=== PATIENT | male | born 1990 | race African-American/Black ===

== ENCOUNTER 2017-05-11 17:33 | Emergency (ER) | payer OTHER ==
[~2017-05-11] VITALS: Ht 182.9 cm; Wt 97.5 kg
[~2017-05-11 17:33] MED LIST: ALLEGRA ALLERG180 MG PO; ALLEGRA-D 12 H1 EACH PO; AZITHROMYCIN 2250 MG PO; FLONASE 0.05%50 MCG NASAL; IBUPROFEN 600600 M1 PO; KEFLEX500 MG PO; MOXIFLOXACIN H400 MG PO; NASONEX17 GM NASAL; ZPAK PO
[2017-05-11 19:18] LABS: HEMATOCRIT 37.7 % (42.0-52.0); HEMOGLOBIN 13.6 gm/dL (14.0-18.0); MCH 32.3 pg (26.0-34.0); MCHC 36.1 g/dL (28.0-37.0); MCV 89.5 fL (80.0-100.0); PLATELET COUNT 337 thou/uL (150-400); RBC 4.22 mil/uL (4.50-6.00); RDW 12.3 % (10.5-14.5); WBC 5.1 thou/uL (4.0-11.0)
[2017-05-11 19:20] LABS: MANUAL DIFF YES
[2017-05-11 19:30] LABS: ANION GAP 6 mmol/L (7-16); BUN 13 mg/dL (7-18); CALCIUM 8.7 mg/dL (8.5-10.1); CHLORIDE 107 mmol/L (98-107); CO2 29 mmol/L (21-32); CREATININE 1.4 mg/dL (0.7-1.3); GLUCOSE 114 mg/dL (74-106); POTASSIUM 3.6 mmol/L (3.5-5.1); SODIUM 142 mmol/L (136-145)
[2017-05-11 19:35] LABS: CHOLESTEROL 127 mg/dL (<200); HDL CHOLESTEROL 71 mg/dL (>40); LDL CHOLESTEROL 32 mg/dL (<100); TC:HDL 1.8 Ratio (Not establshd); TRIGLYCERIDE 121 mg/dL (<150); VLDL 24 mg/dL (<40)
[2017-05-11 19:54] LABS: ABSOLUTE NEUTROPHILS 2.8 thou/uL (1.4-8.2); TOTAL CELL COUNT 100
[2017-05-11 21:07] VITALS: BP 139/60
== END 2017-05-11 21:11 | disposition short-term general hospital (02) ==
LOC: ER 17:33
PROVIDERS: Physician Assistant
DX: S09.90XA Unspecified injury of head, initial encounter (principal); F07.81 Postconcussional syndrome; F17.210 Nicotine dependence, cigarettes, uncomplicated; F10.99 Alcohol use, unspecified with unspecified alcohol-induced disorder; F12.10 Cannabis abuse, uncomplicated; Z88.1 Allergy status to other antibiotic agents; V89.2XXA Person injured in unspecified motor-vehicle accident, traffic, initial encounter; Y93.89 Activity, other specified; Y92.89 Other specified places as the place of occurrence of the external cause; Y99.8 Other external cause status

== ENCOUNTER 2017-07-21 00:32 | Emergency (ER) | payer OTHER ==
[~2017-07-21] VITALS: Ht 182.9 cm; Wt 103.4 kg
[2017-07-21 00:38] VITALS: BP 141/87
[2017-07-21] MEDS ORDERED: CIPRODEX OTIC7.5 ML OTIC (00:56)
== END 2017-07-21 01:12 | disposition home or self-care (01) ==
LOC: ER 00:32
DX: H60.91 Unspecified otitis externa, right ear (principal); F17.210 Nicotine dependence, cigarettes, uncomplicated; F10.99 Alcohol use, unspecified with unspecified alcohol-induced disorder; Z88.1 Allergy status to other antibiotic agents

== ENCOUNTER 2018-05-03 22:55 | Emergency (ER) | payer OTHER ==
[~2018-05-03] VITALS: Ht 182.9 cm; Wt 97.5 kg
[~2018-05-03 22:55] MED LIST changes: +CIPRODEX OTIC7.5 ML OTIC; +CORTISPORIN OTI10 ML OTIC; +DOXYCYCLINE 10100 MG PO
[2018-05-04] MEDS ORDERED: CLINDAMYCIN HC300 MG PO (00:54)
[2018-05-04] MEDS ORDERED: PREDNISONE 20 M20 MG PO (00:54)
[2018-05-04 01:20] VITALS: BP 134/78
== END 2018-05-04 01:20 | disposition home or self-care (01) ==
LOC: ER 22:55
DX: L02.211 Cutaneous abscess of abdominal wall (principal); H66.91 Otitis media, unspecified, right ear; J32.9 Chronic sinusitis, unspecified; F17.210 Nicotine dependence, cigarettes, uncomplicated; Z88.1 Allergy status to other antibiotic agents

== ENCOUNTER 2019-03-04 10:54 | Emergency (ER) | payer OTHER ==
[~2019-03-04] VITALS: Ht 182.9 cm; Wt 99.8 kg
[~2019-03-04 10:54] MED LIST changes: +CLINDAMYCIN HC300 MG PO; +PREDNISONE 20 M20 MG PO
[2019-03-04] MEDS ORDERED: MEDROLDOSEPACK PO (13:28)
[2019-03-04] MEDS ORDERED: DOXYCYCLINE 10100 MG PO (13:28)
[2019-03-04 15:19] VITALS: BP 158/100
== END 2019-03-04 14:11 | disposition home or self-care (01) ==
LOC: ER 10:54
DX: R50.9 Fever, unspecified (principal); R05 Cough; R09.81 Nasal congestion; F17.210 Nicotine dependence, cigarettes, uncomplicated; Z88.1 Allergy status to other antibiotic agents

== ENCOUNTER 2019-03-22 16:51 | Emergency (ER) | payer OTHER ==
[~2019-03-22] VITALS: Ht 182.9 cm; Wt 99.8 kg
[~2019-03-22 16:51] MED LIST changes: +MEDROLDOSEPACK PO
[2019-03-22] MEDS ORDERED: BACTRIM DS TAB1 EACH PO (17:32)
[2019-03-22] MEDS ORDERED: FLONASE 0.05%50 MCG NASAL (17:32)
[2019-03-22] MEDS ORDERED: PREDNISONE 10 M10 MG PO (17:32)
[2019-03-22 17:40] VITALS: BP 147/86
== END 2019-03-22 17:40 | disposition home or self-care (01) ==
LOC: ER 16:51
DX: J32.9 Chronic sinusitis, unspecified (principal); L02.415 Cutaneous abscess of right lower limb; F17.210 Nicotine dependence, cigarettes, uncomplicated; Z88.1 Allergy status to other antibiotic agents

== ENCOUNTER 2019-03-25 17:29 | Emergency (ER) | payer OTHER ==
[~2019-03-25] VITALS: Ht 182.9 cm; Wt 99.8 kg
[~2019-03-25 17:29] MED LIST changes: +BACTRIM DS TAB1 EACH PO; +PREDNISONE 10 M10 MG PO
[2019-03-25] MEDS ORDERED: NORCO 5-325 TA1 EAC1 PO (20:37)
[2019-03-25] MEDS ORDERED: IBUPROFEN 600600 M1 PO (20:37)
[2019-03-25 21:04] VITALS: BP 168/74
== END 2019-03-25 21:05 | disposition home or self-care (01) ==
LOC: ER 17:29
DX: L02.415 Cutaneous abscess of right lower limb (principal); F17.210 Nicotine dependence, cigarettes, uncomplicated; Z88.8 Allergy status to other drugs, medicaments and biological substances; Z88.1 Allergy status to other antibiotic agents

== ENCOUNTER 2021-02-24 04:22 | Emergency (ER) | payer OTHER ==
[~2021-02-24] VITALS: Ht 182.9 cm; Wt 104.3 kg
[~2021-02-24 04:22] MED LIST changes: +NORCO 5-325 TA1 EAC1 PO
[2021-02-24 04:28] VITALS: BP 130/85
[2021-02-24] MEDS ORDERED: NOHOMEMEDICATIONS (04:38)
[2021-02-24] MEDS ORDERED: AZITHROMYCIN 2250 MG PO (04:52)
[2021-02-24] MEDS ORDERED: NEO-POLYMYXIN-H10 ML RT. EAR (04:52)
== END 2021-02-24 05:10 | disposition home or self-care (01) ==
LOC: ER 04:22
DX: H66.91 Otitis media, unspecified, right ear (principal); H72.91 Unspecified perforation of tympanic membrane, right ear; F17.210 Nicotine dependence, cigarettes, uncomplicated; Z88.1 Allergy status to other antibiotic agents

== ENCOUNTER 2021-06-06 23:14 | Emergency (ER) | payer OTHER ==
[~2021-06-06] VITALS: Ht 182.9 cm; Wt 95.3 kg
[~2021-06-06 23:14] MED LIST changes: +NEO-POLYMYXIN-H10 ML RT. EAR; +NOHOMEMEDICATIONS
[2021-06-07] MEDS ORDERED: CIPRODEX OTIC7.5 ML OTIC (01:04)
[2021-06-07] MEDS ORDERED: CLARITHROMYCIN500 MG PO (01:04)
[2021-06-07 01:12] VITALS: BP 144/89
== END 2021-06-07 01:14 | disposition home or self-care (01) ==
LOC: ER 23:14
DX: H60.91 Unspecified otitis externa, right ear (principal); Z88.1 Allergy status to other antibiotic agents; F17.210 Nicotine dependence, cigarettes, uncomplicated

== ENCOUNTER 2021-08-21 17:49 | Emergency (ER) | payer OTHER ==
[~2021-08-21] VITALS: Ht 182.9 cm; Wt 95.3 kg
[2021-08-21 17:49] VITALS: BP 159/93
[~2021-08-21 17:49] MED LIST changes: +CLARITHROMYCIN500 MG PO
[2021-08-21] MEDS ORDERED: BACTRIM DS TAB1 EAC1 PO (18:54)
[2021-08-21] MEDS ORDERED: IBU600 MG PO (18:54)
== END 2021-08-21 19:09 | disposition home or self-care (01) ==
LOC: ER 17:49
DX: L02.411 Cutaneous abscess of right axilla (principal); F17.210 Nicotine dependence, cigarettes, uncomplicated; Z88.1 Allergy status to other antibiotic agents; Z88.8 Allergy status to other drugs, medicaments and biological substances